=== PATIENT | female | born 1985 | race Two or more races ===

== ENCOUNTER 2017-12-20 10:05 | Emergency (ER) | payer OTHER ==
[2017-12-20] MEDS ORDERED: CYCLOBENZAPRINE HCL 10 MG TABLET PO ONE (10:55)
[2017-12-20] MEDS ORDERED: KETOROLAC TROMETHAMINE 60 MG/2 ML SDV IM ONE (10:55)
--- NOTE | 2017-12-20 11:36 | ER Document Report ---
HPI - HPI Patient complains to provider of: right side pain Pain Level: 5 Context: Patient is a 32-year-old female presenting to the emergency department complaining of her right upper back pain. Patient states at work she lifted a 25 pound bag and twisted and immediately felt pain in her right upper back. Patient states that she has pain upon movement and taking a deep breath. Patient denies falling at any time. Past medical history: None Medications: None Allergies: None Patient does admit to everyday cigarette smoking, denies illicit drug use, denies EtOH use. Past Medical History - General Information source: Patient - Social History Smoking Status: Current Every Day Smoker Frequency of alcohol use: None Drug Abuse: None Family History: Reviewed & Not Pertinent Patient has suicidal ideation: No Patient has homicidal ideation: No Renal/ Medical History: Denies: Hx Peritoneal Dialysis Vertical Provider Document - CONSTITUTIONAL Agree With Documented VS: Yes Notes: GENERAL: Alert, interacts well. No acute distress. HEAD: Normocephalic, atraumatic. EYES: Pupils equal, round, and reactive to light. Extraocular movements intact. ENT: Oral mucosa moist, tongue midline. NECK: Full range of motion. Supple. Trachea midline. LUNGS: Clear to auscultation bilaterally, no wheezes, rales, or rhonchi. No respiratory distress. HEART: Regular rate and rhythm. No murmur ABDOMEN: Soft, non-tender. Non-distended. Bowel sounds present in all 4 quadrants. EXTREMITIES: Moves all 4 extremities spontaneously. No edema, normal radial and dorsalis pedis pulses bilaterally. No cyanosis. BACK: no cervical, thoracic, lumbar midline tenderness. No saddle anesthesia, normal distal neurovascular exam. Pain upon palpation right lower ribs. No crepitus felt, no erythema or bruising noted. NEUROLOGICAL: Alert and oriented x3. Normal speech. cranial nerves II through XII grossly intact PSYCH: Normal affect, normal mood. SKIN: Warm, dry, normal turgor. No rashes or lesions noted. - INFECTION CONTROL TRAVEL OUTSIDE OF THE [place] IN LAST 30 DAYS: No Course - Re-evaluation Re-evalutation: 12/20/17 12:02 X-ray in the ED was negative, likely muscle sprain. Return precautions discussed Discharge - Discharge Clinical Impression: Thoracic back sprain Qualifiers: Encounter type: initial encounter Qualified Code(s): S23.9XXA - Sprain of unspecified parts of thorax, initial encounter Condition: Stable Disposition: HOME, SELF-CARE Instructions: Muscle Strain ([facility]), Warm Packs ([facility]) Additional Instructions: Your x-rays revealed no signs of fracture. You most likely pulled a muscle. You should take medications as prescribed. You can also buy [id number] Lidoderm patches. It is much cheaper to buy them [id number] even if you do have insurance they are a very expensive prescription. Please continue to try to take deep breaths in order to prevent pneumonia. Please use incentive spirometer given to in the emergency room. Please return to the emergency room for any other concerning symptoms. Prescriptions: Ketorolac Tromethamine [Toradol 10 mg Tablet] 10 mg PO Q8HP PRN #24 tablet PRN Reason: Cyclobenzaprine HCl [Flexeril 10 mg Tablet] 10 mg PO TIDP PRN #15 tab PRN Reason:
--- NOTE | 2017-12-20 12:07 | RADIOLOGY REPORT (SQ) ---
EXAM DESCRIPTION: RIBS RIGHT W/PA CHEST COMPLETED DATE/TIME: 12/20/2017 11:34 am REASON FOR STUDY: pain COMPARISON: None. TECHNIQUE: Frontal view of the chest and additional views of the right ribs acquired. NUMBER OF VIEWS: Three view. LIMITATIONS: None. FINDINGS: FRONTAL CXR: No pneumothorax. No pleural effusion. No atelectasis or infiltrates. RIBS: No displaced rib fractures. No lytic or blastic bony lesions. OTHER: No other significant finding. IMPRESSION: NO PNEUMOTHORAX. NO DISPLACED RIB FRACTURES. COMMENT: SITE OF TRAUMA/COMPLAINT MARKED/STAMP COMPLETED: NO. TECHNICAL DOCUMENTATION: JOB ID: [id number] [employer]- All Rights Reserved Reading location - IP/workstation name: [email or web address]
[2017-12-20 12:31] VITALS: BP 106/67
== END 2017-12-20 12:41 | disposition home or self-care (01) ==
LOC: ER 10:05
DX: S23.3XXA Sprain of ligaments of thoracic spine, initial encounter (principal); X50.0XXA Overexertion from strenuous movement or load, initial encounter; Y99.0 Civilian activity done for income or pay; F17.210 Nicotine dependence, cigarettes, uncomplicated
CPT/HCPCS: 99284; 96372; 71101; J1885

== ENCOUNTER 2018-03-26 20:20 | Emergency (ER) | payer SELFPAY ==
--- NOTE | 2018-03-27 00:09 | ER Document Report ---
Addendum entered and electronically signed by ELIEL PERALTA PA-C 03/27/18 00:26: Discharge - Discharge Clinical Impression: Eczema of both hands Condition: Good Disposition: HOME, SELF-CARE Instructions: Atopic Dermatitis (Eczema) ([facility]) Prescriptions: Prednisone [Sterapred Ds] 1 pkg PO ASDIR PRN 12 Days tab.ds.pk PRN Reason: Triamcinolone Acetonide [Aristocort 0.025% Cream] 1 applic TP BID #30 gram Forms: Return to Work Referrals: [facility] [Provider Group] - Follow up as needed Original Note: ED General - General Chief Complaint: Hand Pain Stated Complaint: PAIN/SWELLING IN HANDS Time Seen by Provider: 03/26/18 23:21 Mode of Arrival: Ambulatory Information source: Patient TRAVEL OUTSIDE OF THE [place] IN LAST 30 DAYS: No - HPI Patient complains to provider of: Eczema on the hands Onset: Other - Chronic Onset/Duration: Persistent Quality of pain: Burning Severity: Moderate Context: Patient is constantly immersing her hands to wash dishes or do laundry Associated symptoms: None Exacerbated by: Denies Relieved by: Denies Notes: 33-year-old female coming in today with chief complaint of significant eczema on both hands. She gets it just on her hands from the type of work that she does. She is does cleaning and laundry in her hands get excessively dry and cracked and painful. Patient has been prescribed Eucrisa but she cannot afford to use it on a regular basis because of the cost. Requesting something stronger and less expensive. - Related Data Allergies/Adverse Reactions: No Known Allergies Allergy (Verified 03/26/18 20:24) Past Medical History - General Information source: Patient - Social History Smoking Status: Current Every Day Smoker Chew tobacco use (# tins/day): No Frequency of alcohol use: None Drug Abuse: None Family History: Reviewed & Not Pertinent Patient has suicidal ideation: No Patient has homicidal ideation: No Renal/ Medical History: Denies: Hx Peritoneal Dialysis - Immunizations Hx Diphtheria, Pertussis, Tetanus Vaccination: No Review of Systems - Review of Systems Notes: Constitutional: No fevers. No chills. EENT: No eye redness. No eye pain. No ear pain. No sore throat. Cardiovascular: No chest pain. No palpitations. Respiratory: No cough. No shortness of breath. No respiratory distress. Gastrointestinal: No abdominal pain. No nausea, vomiting, or diarrhea. Genitourinary: Atraumatic. No lesions. No pain. No discharge. Musculoskeletal: Atraumatic. No swelling. No deformities. Skin: Dry skin bilateral hands. Lymphatic: No swollen lymph nodes. Neurologic: No headache. No syncope. Psychiatric: No suicidal or homicidal ideation. Physical Exam - Vital signs Vitals: Temp Pulse Resp BP Pulse Ox 98.3 F 71 16 124/77 100 03/26/18 21:13 03/26/18 21:13 03/26/18 21:13 03/26/18 21:13 03/26/18 21:13 - Notes Notes: General: Well-developed, well-nourished. In no acute distress. Non-toxic appearing. Cardiac: Well-perfused. Regular rate and rhythm. No murmurs, rubs, or gallops. Pulmonary: No respiratory distress. No cyanosis. Bilateral lung fiels are clear to auscultation. Abdominal: Non-distended. Non-rigid. Bowels sounds are present in all four quadrants. No guarding or rebound. HEENT: Head is atraumatic. Conjunctivae not reddened. No tearing. PERRL. EOMI. Orbits atraumatic. No periorbital swelling or erythema. Oropharynx is without erythema, swelling, or exudates. Neck: Supple. No adenopathy. No meningismus. Dermatologic: Bilateral hands with diffuse dry cracking mildly erythematous rash. No open lesions or bleeding Chest: Atraumatic. No chest wall tenderness to palpation. Musculoskeletal: Moves all extremities well. No range of motion deficits. no muscular or joint tenderness. No paraspinal muscle tenderness. no midline spinal tenderness or step-off. Genitourinary: Examination deferred Neurologic: No gross neurologic deficits. Psychiatric: Normal mood. Course - Vital Signs Vital signs: Temp Pulse Resp BP Pulse Ox 98.3 F 71 16 124/77 100 03/26/18 21:13 03/26/18 21:13 03/26/18 21:13 03/26/18 21:13 03/26/18 21:13 Discharge - Discharge Clinical Impression: Eczema of both hands Condition: Good Disposition: HOME, SELF-CARE Instructions: Atopic Dermatitis (Eczema) ([facility]) Prescriptions: Prednisone [Sterapred Ds] 1 pkg PO ASDIR PRN 12 Days tab.ds.pk PRN Reason: Triamcinolone Acetonide [Aristocort 0.025% Cream] 1 applic TP BID #30 gram Referrals: [facility] [Provider Group] - Follow up as needed
[2018-03-27 00:19] VITALS: BP 118/77
[2018-03-27] MEDS ORDERED: LIDOCAINE 2% VISCOUS SOLN 20 ML UDCUP PO ONE (00:19)
== END 2018-03-27 00:53 | disposition home or self-care (01) ==
LOC: ER 20:20
DX: L30.9 Dermatitis, unspecified (principal); M79.642 Pain in left hand; M79.641 Pain in right hand; M79.89 Other specified soft tissue disorders
CPT/HCPCS: 99283; J3490

== ENCOUNTER 2018-10-08 19:05 | Emergency (ER) | payer OTHER ==
[2018-10-08] MEDS ORDERED: DEXAMETHASONE SOD PHOS INJ 10 MG/1 ML VIAL IM ONE (20:35)
[2018-10-08] MEDS ORDERED: CETIRIZINE 10 MG TABLET PO ONE (20:35)
--- NOTE | 2018-10-08 20:37 | ER Document Report ---
HPI - HPI Time Seen by Provider: 10/08/18 20:26 Pain Level: 3 Context: Patient is a 34-year-old female presents to the emergency department with a chief complaint of rash. Patient states that the rash has been present to her hands for 1 month but today while at work they switch to new gloves and she thinks she was exposed to latex. Patient reports she feels like she has eczema to her hands but after being exposed to the latex the rash got worse and now extends up into the right and left forearm. Patient states she is having itching and redness. Patient was seen for a rash to the hands 1 month ago and given prednisone. Patient states that times that she feels like this helps. Patient states she is fine when she is at her first job but she believes she is exposed to something at her second job that is causing this. Patient denies new lotions, detergents, make-up, perfumes or anything that is new that she has been exposed to. - REPRODUCTIVE Reproductive: DENIES: : Past Medical History - Social History Smoking Status: Unknown if Ever Smoked Lives with: Family Family History: Reviewed & Not Pertinent - Past Medical History Cardiac Medical History: Reports: None Pulmonary Medical History: Reports: None EENT Medical History: Reports: None Neurological Medical History: Reports: None Endocrine Medical History: Reports: None Renal/ Medical History: Reports: None. Denies: Hx Peritoneal Dialysis Malignancy Medical History: Reports: None GI Medical History: Reports: None Musculoskeletal Medical History: Reports None Skin Medical History: Reports None Psychiatric Medical History: Reports: None Traumatic Medical History: Reports: None Infectious Medical History: Reports: None Surgical Hx: Negative - Immunizations Hx Diphtheria, Pertussis, Tetanus Vaccination: No Vertical Provider Document - CONSTITUTIONAL Agree With Documented VS: Yes Exam Limitations: No Limitations General Appearance: No Apparent Distress - INFECTION CONTROL TRAVEL OUTSIDE OF THE [place] IN LAST 30 DAYS: No - HEENT HEENT: Atraumatic, Normocephalic, PERRLA - NECK Neck: Normal Inspection - RESPIRATORY Respiratory: Breath Sounds Normal, No Respiratory Distress - CARDIOVASCULAR Cardiovascular: Regular Rate, Regular Rhythm - GI/ABDOMEN Gastrointestinal: Abdomen Soft, Abdomen Non-Tender, Normal Bowel Sounds - NEURO Level of Consciousness: Awake, Alert, Appropriate - DERM Integumentary: Warm, Rash Adult Front & Back Diagram: 1 - scattered erythematous rash, hands appear dry and cracked. no hives 2 - scattered erythematous rash, hands appear dry and cracked. no hives Course - Vital Signs Vital signs: Temp Pulse Resp BP Pulse Ox 98.0 F 90 18 125/63 97 10/08/18 19:13 10/08/18 19:13 10/08/18 19:13 10/08/18 19:13 10/08/18 19:13 Discharge - Discharge Clinical Impression: Rash, Urticaria Condition: Stable Disposition: HOME, SELF-CARE Additional Instructions: Today you were seen in the emergency department for rash. It appears today's rash is worsened after wearing latex gloves. Please refrain from using any latex products as this could be an irritant for your skin. Please continue to u se non-scented lotions on your hands. Finish the oral dose of prednisone as previously prescribed. Please do not scratch the areas as this can expose you to infection. Please return to emergency department if symptoms worsen or spread to your face. Prescriptions: Cetirizine HCl [Zyrtec 10 mg Tablet] 1 tab PO DAILY #30 tablet
[2018-10-08 21:03] VITALS: BP 119/78
== END 2018-10-08 21:13 | disposition home or self-care (01) ==
LOC: ER 19:05
DX: R21 Rash and other nonspecific skin eruption (principal); L50.9 Urticaria, unspecified
CPT/HCPCS: 99283; 96372; J1100